=== PATIENT | female | born 1950 | race Caucasian/White ===

== ENCOUNTER 2018-12-24 08:49 | Emergency (ER) | payer MEDICARE, SELFPAY ==
[2018-12-24 08:55] VITALS: BP 152/47; PULSE 66; RESP 16; TEMP 36.4; O2SAT 95
--- NOTE | 2018-12-24 08:58 | W.ED.GENAD ---
Discharge Plan Disposition Patient Disposition: HOME Condition: Improving Discharge Details Chief Complaint: Epistaxis Clinical Impression: Encounter for removal of nasal packing Primary Care Provider: Mily,Local ED Provider: Michael Vargas Discharge Instructions Additional Instructions: Continue all regular medications. Please follow-up with otolaryngology in [place] for recheck. Routine care with your primary care physician in [place]. Return for any acute concerns while in the area. Medical Decision Making 68-year-old female presents from home with left nare epistaxis she reports occurred 2 days ago, nasal tampon was placed, she was placed on antibiotic, told to follow-up with local ER for removal today as she was to be in [place] on vacation. She has no other complaints. She otherwise well. I removed the left nare nasal tampon without persistent or recurrent bleeding. Patient stable for discharge. She will follow-up with her primary care physician in [place]. HPI General Mode of arrival: ambulatory. Date/Time Provider Initiated Documentation: 12/24/18 08:50. Limitations to Documentation: no limitations. Information obtained by: patient. History of Present Illness 68 year old F presents to the emergency department with the chief complaint of For removal of nasal packing, Quality is described as dull and constant, and is localized to the face. Patient reports no radiation. No relieving factors improve symptom(s), No exacerbating factors reported . Patient notes no other symptoms.. General Stated Complaint: Epistaxis JG: 4 Review of Systems Review of Systems No fever or discharge. She has otherwise been well and taking medications including Eliquis. [facility] Social History Smoking/Tobacco Use Status: Never Alcohol Intake: current Alcohol Intake frequency: other Substance use type: does not use Do you feel safe at home: Yes Do you feel safe in your relationship?: Yes Exam Narrative Exam Narrative: GEN: awake, alert, oriented 3. Pleasant, well groomed, interactive. HEAD: Normocephalic, atraumatic ENT: Mucous membranes moist, oropharynx unremarkable, External ear exam unremarkable. Nasal packing left nare removed, no persistent bleeding EYES: PERRL, EOMI NECK: Full ROM, no SANDI, no menigismus EXT: Full ROM, no edema, no rash Neuro: Grossly normal neurologic exam, conversant, interactive. Psych: Speech fluent, thoughts congruent, affect normal Course Vital Signs Temperature 36.4 C L 12/24/18 08:55 Pulse 66 12/24/18 08:55 Respiratory Rate 16 12/24/18 08:55 Blood Pressure 152/47 H 12/24/18 08:55 Pulse Oximetry 95 12/24/18 08:55 Temperature 36.4 C L 12/24/18 08:55 Temperature Source Skin 12/24/18 08:55 Pulse 66 12/24/18 08:55 Respiratory Rate 16 12/24/18 08:55 Blood Pressure 152/47 H 12/24/18 08:55 Blood Pressure Position Sitting 12/24/18 08:55 Pulse Oximetry 95 12/24/18 08:55 Oxygen Delivery Method Room Air 12/24/18 08:55 Oxygen Flow Rate 0 12/24/18 08:55 Pain Level 0 12/24/18 08:55
--- NOTE | 2018-12-24 09:05 | NUR.NOTE ---
Nursing Note: packing that was placed in the left nostril on 12/22 was removed by MD Vargas.
== END 2018-12-24 09:16 | disposition home or self-care (01) ==
PROVIDERS: Emergency Provider Emergency Medicine
DX: R04.0 Epistaxis (principal); Z48.01 Encounter for change or removal of surgical wound dressing
CPT/HCPCS: 99281